=== PATIENT | female | born 1980 | race American Indian/Alaskan Native ===

== ENCOUNTER 2017-09-28 00:36 | Observation (INO) | payer OTHER ==
[2017-09-28 00:47] VITALS: BMI 19.0
[2017-09-28] MEDS ORDERED: Morphine 2 mg/ml ISec IVP STA ×3 (01:10→04:02)
[2017-09-28 01:38] LABS: BASO # 0.02 K/mm3 (0.0-2.0); BASO % 0.3 % (0.0-3.0); EOS # 0.1 (0.0-0.7); EOS % 1.8 % (1.5-5.0); GRAN % 45.6 % (50.0-68.0); HEMOGLOBIN 10.6 g/dL (12.0-16.0); LYMPH # 2.3 (1.2-3.4); LYMPH % 29.3 % (22.0-35.0); MEAN CELL VOLUME 79.7 fl (80.0-105.0); MEAN CORPUSCULAR HEMOGLOBIN 28.3 pg (25.0-35.0); MEAN CORPUSCULAR HGB CONC 35.6 g/dl (31.0-37.0); MEAN PLATELET VOLUME 10.7 fl (7.0-11.0); MONO # 1.8 (0.1-0.6); PLATELET COUNT 232 10^3/uL (120.0-450.0); RBC 3.74 10^6/uL (3.5-6.1); RED CELL DISTRIBUTION WIDTH 19.1 % (11.5-14.5); WHITE BLOOD COUNT 7.7 10^3/ul (4.5-11.0)
[2017-09-28 01:41] LABS: ALB/GLOB RATIO 0.9 (1.1-1.8); ALT/SGPT 112 U/L (7-56); AST/SGOT 128 U/L (14-36); BLOOD UREA NITROGEN 20 mg/dL (7-21); CALCIUM 9.7 mg/dL (8.4-10.5); GFR AFRICAN-AMERICAN > 60; GFR NON-AFRICAN AMERICAN > 60; LIPASE 382 U/L (23-300)
--- NOTE | 2017-09-28 01:45 | ED PDOC ---
Arrival/HPI - General Historian: Patient - History of Present Illness Time/Duration: Other (3 hours) Symptom Onset: Sudden Activities at Onset: Light Context: Home <Kit Catsle - Last Filed: 09/28/17 04:37> - General Historian: Patient <CullenYao - Last Filed: 09/28/17 04:53> - General Chief Complaint: Chest Pain Time Seen by Provider: 09/28/17 00:40 - History of Present Illness Narrative History of Present Illness (Text): 09/28/17 01:47 PGY-[address] Castle Paula is a 37 year old female with PMHx Colon CA with liver mets s/p colon resection and PE one month ago who presents with chest pain. Patient states that one month ago she was hospitalized for PE after experiencing sudden sharp chest pain and was started on Lovenox following discharge. Today she is presenting with sharp, throbbing pain across the whole chest that is worst in the center of the chest over the sternum. Pt states she laid down to go to sleep and was abruptly woken by this sudden pain. The chest pain does not radiate to the back, shoulders, or jaw, and is not pleuritic. She states this pain feels similar to how she felt when she had a PE. Pt also states she is having mild shortness of breath. She also complains of associated epigastric pain with some nausea, no vomiting, diarrhea, or bloody stools. Pt denies headache, leg swelling, calf pain, dizziness, paresthesias, vision changes. 09/28/17 04:51 (Yao Berman) Past Medical History - Provider Review Nursing Documentation Reviewed: Yes - Infectious Disease Hx of Infectious Diseases: None - Cardiac Hx Cardiac Disorders: No - Pulmonary Hx Respiratory Disorders: No Hx Pulmonary Embolism: Yes - Neurological Hx Neurological Disorder: No - HEENT Hx HEENT Disorder: No - Renal Hx Renal Disorder: No - Endocrine/Metabolic Hx Endocrine Disorders: No - Hematological/Oncological Hx Blood Disorders: No - Integumentary Hx Dermatological Disorder: No - Musculoskeletal/Rheumatological Hx Musculoskeletal Disorders: No - Gastrointestinal Hx Gastrointestinal Disorders: Yes Other/Comment: Colon Cancer, patient reports spread to her liver. - Genitourinary/Gynecological Hx Genitourinary Disorders: No - Psychiatric Hx Psychophysiologic Disorder: No Hx Substance Use: No <Yao Berman - Last Filed: 09/28/17 04:53> Family/Social History - Physician Review Nursing Documentation Reviewed: Yes Family/Social History: Unknown Family HX Smoking Status: Never Smoked Hx Alcohol Use: No Hx Substance Use: No <Yao Berman - Last Filed: 09/28/17 04:53> Allergies/Home Meds <Kit Castle - Last Filed: 09/28/17 04:37> <Yao Berman - Last Filed: 09/28/17 04:53> Allergies/Adverse Reactions: Allergies No Known Allergies Allergy (Verified 09/28/17 00:47) Home Medications: Home Meds Medication Instructions Recorded Confirmed Unobtainable 09/28/17 09/28/17 Review of Systems - Physician Review All systems were reviewed & negative as marked: Yes <Kit Castle - Last Filed: 09/28/17 04:37> - Review of Systems Constitutional: Other (no chills). absent: Fevers Eyes: Normal. absent: Vision Changes, Photophobia, Eye Pain ENT: Normal. absent: Hearing Changes, Sore Throat, Rhinorrhea Respiratory: SOB. absent: Cough, Sputum Cardiovascular: Chest Pain. absent: Palpitations, Edema, Calf Pain Gastrointestinal: Abdominal Pain, Nausea. absent: Constipation, Diarrhea, Vomiting Genitourinary Female: Normal. absent: Dysuria, Frequency Musculoskeletal: Normal. absent: Back Pain, Neck Pain Skin: Normal. absent: Rash, Pruritis Neurological: Normal. absent: Headache, Dizziness, Focal Weakness <Yao Berman - Last Filed: 09/28/17 04:53> Physical Exam Vital Signs Reviewed: Yes Temperature: Afebrile Blood Pressure: Normal Pulse: Tachycardic Respiratory Rate: Normal Appearance: Positive for: Uncomfortable Pain Distress: Moderate Mental Status: Positive for: Alert and Oriented X 3. No: Confused, Agitated - Systems Exam Head: Present: Atraumatic, Normocephalic Pupils: Present: PERRL Extroacular Muscles: Present: EOMI Conjunctiva: Present: Normal Mouth: Present: Moist Mucous Membranes, Normal Lips, Normal Tounge Pharnyx: Present: Normal. No: ERYTHEMA, EXUDATE, Uvular Deviation Nose (External): Present: Atraumatic Respiratory/Chest: Present: Clear to Auscultation. No: Respiratory Distress, Accessory Muscle Use, Wheezes, Decreased Breath Sounds Cardiovascular: Present: Regular Rate and Rhythm, Normal S1, S2. No: Murmurs Abdomen: Present: Tenderness (+tenderness to palpation in epigastric region, particularly on R side just below diaphragm), Normal Bowel Sounds. No: Distention, Peritoneal Signs, Rebound, Guarding Upper Extremity: Present: Normal Inspection, NORMAL PULSES. No: Cyanosis, Edema , Tenderness, Swelling Lower Extremity: Present: Normal Inspection, NORMAL PULSES. No: Edema, CALF TENDERNESS, Swelling, Erythema, Deformity Neurological: Present: GCS=15, CN II-XII Intact, Speech Normal, Motor Func Grossly Intact, Normal Sensory Function Skin: Present: Warm, Dry, Normal Color. No: Rashes Psychiatric: Present: Alert, Oriented x 3, Normal Insight, Normal Concentration <Yao Berman - Last Filed: 09/28/17 04:53> Vital Signs Temp Pulse Resp BP Pulse Ox 09/28/17 02:38 96 H 18 110/72 100 09/28/17 00:47 98.1 F 105 H 18 125/80 100 Medical Decision Making <Kit Castle - Last Filed: 09/28/17 04:37> - EKG Interpretation Interpreted by ED Physician: Yes Type: 12 lead EKG <Yao Berman - Last Filed: 09/28/17 04:53> ED Course and Treatment: In agreement with resident note which contains more details about the patient. Patient was seen and evaluated with resident. Came up with plan and treatment together. 37 year old female presents complaining chest pain and shortness of breath that began 3 hours prior to arrival. Patient also reports epigastric pain associated with nausea. Plan: -- CT Abdomen & Pelvis IV Contrast -- CT Angio Chest PE Protocol -- Labs -- Morphine, Zofran Inj -- POC Urine Preg test (Kit Castle) 1) Chest pain, rule out PE: * EKG, Cardiac enzymes * Labs: CBC with dif, CMP * CT angiogram chest * Morphine 2 mg IV twice for pain, Zofran 4mg 2) Epigastric pain * Lipase * CT abd/pelvis w/ IV contrast Results: EKG- Sinus tach, no ST or T changes CT angio chest: No evidence of PE CT abd/pelvis: Evidence of metastatic disease on liver (Yao Berman) - Lab Interpretations Lab Results: 09/28/17 01:15 09/28/17 01:15 Lab Results 09/28/17 01:15: PT 12.4, INR 1.09, APTT 51.9 H 09/28/17 01:15: Sodium 139, Potassium 3.9, Chloride 103, Carbon Dioxide 25, Anion Gap 15, BUN 20, Creatinine 0.6 L, Est GFR ( Amer) > 60, Est GFR ( Non-Af Amer) > 60, Random Glucose 95, Calcium 9.7, Total Bilirubin 0.6, AST 128 H, ALT 112 H, Alkaline Phosphatase 353 H, Lactate Dehydrogenase 698, Total Creatine Kinase 40, Troponin I < 0.01, Total Protein 8.4 H, Albumin 4.0, Globulin 4.4, Albumin/Globulin Ratio 0.9 L, Lipase 382 H 09/28/17 01:15: WBC 7.7, RBC 3.74, Hgb 10.6 L, Hct 29.8 L, MCV 79.7 L, MCH 28.3 , MCHC 35.6, RDW 19.1 H, Plt Count 232, MPV 10.7, Gran % 45.6 L, Lymph % (Auto) 29.3, Davison % (Auto) 23.0 H, Eos % (Auto) 1.8, Baso % (Auto) 0.3, Gran # 3.50, Lymph # (Auto) 2.3, Davison # (Auto) 1.8 H, Eos # (Auto) 0.1, Baso # (Auto) 0.02, Neutrophils % (Manual) Pending, Lymphocytes % (Manual) Pending, Monocytes % ( Manual) Pending - RAD Interpretation Radiology Orders: 09/28/17 01:09 ANGIO CHEST PE PROTOCOL [CT] Stat 09/28/17 01:14 ABDOMEN & PELVIS [ABD & PELVIS IV CONTRAST ONLY] [CT] Stat - EKG Interpretation EKG Interpretation (Text): 09/28/17 01:[address] or T changes. (Yao Berman) - Medication Orders Current Medication Orders: Discontinued Medications Morphine Sulfate (Morphine) 2 mg IVP STAT STA Stop: 09/28/17 01:11 Last Admin: 09/28/17 01:24 Dose: 2 mg MAR Pain Assessment Document 09/28/17 01:24 AD (Rec: 09/28/17 01:24 AD [id number]) Pain Reassessment Is this a pain reassessment? No Presence of Pain Presence of Pain Yes Description Intensity of Pain at present 8 IVP Administration Document 09/28/17 01:24 AD (Rec: 09/28/17 01:24 AD [id number]) Charges for Administration # of IVP Administrations 1 Morphine Sulfate (Morphine) 2 mg IVP STAT STA Stop: 09/28/17 01:47 Last Admin: 09/28/17 01:53 Dose: 2 mg MAR Pain Assessment Document 09/28/17 01:53 AD (Rec: 09/28/17 01:53 AD [id number]) Pain Reassessment Is this a pain reassessment? No Presence of Pain Presence of Pain Yes Description Intensity of Pain at present 8 Pain Behavior Facial Grimacing IVP Administration Document 09/28/17 01:53 AD (Rec: 09/28/17 01:53 AD [id number]) Charges for Administration # of IVP Administrations 1 Morphine Sulfate (Morphine) 2 mg IVP STAT STA Stop: 09/28/17 04:03 Last Admin: 09/28/17 04:08 Dose: 2 mg MAR Pain Assessment Document 09/28/17 04:08 AD (Rec: 09/28/17 04:09 AD [id number]) Pain Reassessment Is this a pain reassessment? No Presence of Pain Presence of Pain Yes Pain Scale Used Pain Scale Used Numeric Description Intensity of Pain at present 5 Pain Behavior Facial Grimacing IVP Administration Document 09/28/17 04:08 AD (Rec: 09/28/17 04:09 AD [id number]) Charges for Administration # of IVP Administrations 1 Ondansetron HCl (Zofran Inj) 4 mg IVP STAT STA Stop: 09/28/17 01:12 Last Admin: 09/28/17 01:24 Dose: 4 mg IVP Administration Document 09/28/17 01:24 AD (Rec: 09/28/17 01:24 AD [id number]) Charges for Administration # of IVP Administrations 1 - PA / PLASTIC MIXER / Resident Statement / has reviewed & agrees with the documentation as recorded. / has examined the patient and agrees with the treatment plan. - Scribe Statement The provider has reviewed the documentation as recorded by the Scribe <Kit Castle - Last Filed: 09/28/17 04:37> <Yao Berman - Last Filed: 09/28/17 04:53> - Scribe Statement Heather Love Provider Scribe Attestation: All medical record entries made by the Scribe were at my direction and personally dictated by me. I have reviewed the chart and agree that the record accurately reflects my personal performance of the history, physical exam, medical decision making, and the department course for this patient. I have also personally directed, reviewed, and agree with the discharge instructions and disposition. (Kit Castle) Disposition/Present on Arrival <Kit Castle - Last Filed: 09/28/17 04:37> - Present on Arrival History of DVT/PE: No History of Uncontrolled Diabetes: No Urinary Catheter: No History of Decub. Ulcer: No History Surgical Site Infection Following: None <Yao Berman - Last Filed: 09/28/17 04:53> - Disposition Disposition: HOSPITALIZED
[2017-09-28 01:52] LABS: TROPONIN I < 0.01 ng/mL
[2017-09-28] MEDS ORDERED: Morphine 2 mg/ml ISec IM STA (03:56)
[2017-09-28 03:57] LABS: INR 1.09; PARTIAL THROMBOPLASTIN TIME 51.9 Seconds (25.1-36.5); PROTHROMBIN TIME 12.4 SECONDS (9.4-12.5)
[2017-09-28 05:14] LABS: BAND 2 % (0-2); EOSINOPHIL 1 % (0.0-3.0); LYMPHOCYTE 33 % (22.0-35.0); MONOCYTE 25 % (1.0-6.0); NEUTROPHIL 40 % (50.0-70.0)
[2017-09-28 05:15] LABS: ANISOCYTOSIS 1+; BASOPHIL 1 % (0.0-1.0); PLATELET ESTIMATE NORMAL (NORMAL)
[2017-09-28] MEDS ORDERED: HYDROmorphone 0.5 mg/0.5 ml ISec IVP STA (05:36)
--- NOTE | 2017-09-28 06:26 | CP.PCM.HP ---
<Adis Duran - Last Filed: 09/28/17 07:45> History of Present Illness - History of Present Illness History of Present Illness: CC: Chest pain/abdominal pain HPI: Patient is a 37 year old female with a past medical history of colon CA with liver mets s/p colon resection, asthma, and PE who presented to the emergency department for evaluation and treatment of chest pain/abdominal pain. States pain began several months ago after undergoing partial colectomy. Chest pain originates in the retrosternal region and is nonradiating. The pain is characterized as being dull throbbing/hot in nature and is rated a 9/10. States morphine does not help with pain. Admits to reduction of pain with use of ICE on affected region and diluadid. Chest pain is associated with shortness of breath and nausea. Abdominal pain is localized to the epigastric region and is characterized as being dull in nature. Admits to constipation with unknown last bowel movement. Denies fever, chills, vomiting, diarrhea, and urinary symptoms. 12 point ROS negative except as indicated in HPI Past medical history: colon CA with liver mets s/p colon resection, asthma, and PE Past surgical history: colectomy (March) Allergies: NKDA Social History: denies ETOH use, denies tobacco use, denies illicit drug use PMD: [facility] Pharmacy: [facility] Present on Admission - Present on Admission Any Indicators Present on Admission: No Review of Systems - Constitutional Constitutional: Fatigue, Lethargy. absent: Chills, Excessive Sweating, Fever, Night Sweats - EENT Eyes: absent: Change in Vision, Pain Ears: Dizziness Nose/Mouth/Throat: absent: Nose Pain, Bleeding Gums, Hoarsness - Cardiovascular Cardiovascular: Chest Pain, Lightheadedness. absent: Claudication, Leg Edema - Respiratory Respiratory: absent: Cough, Hemoptysis, Chest Congestion, Change in Mucous Color , Pain with Coughing - Gastrointestinal Gastrointestinal: Abdominal Pain, Constipation, Nausea. absent: Diarrhea, Vomiting - Genitourinary Genitourinary: absent: Pyuria, Nocturia, Freq UTI - Menstruation Menstruation: Normal Menses - Musculoskeletal Musculoskeletal: absent: Joint Swelling, Myalgias, Neck Pain - Integumentary Integumentary: absent: Hirsutism, Lesions - Neurological Neurological: Dizziness, Headaches. absent: Abnormal Hearing - Psychiatric Psychiatric: absent: Difficulty Concentrating, Mood Swings - Endocrine Endocrine: absent: Excessive Sweating, Polydipsia, Polyphagia - Hematologic/Lymphatic Hematologic: absent: Easy Bleeding, Easy Bruising Past Patient History - Infectious Disease Hx of Infectious Diseases: None - Past Social History Smoking Status: Never Smoked - CARDIAC Hx Cardiac Disorders: No - PULMONARY Hx Respiratory Disorders: No Hx Pulmonary Embolism: Yes - NEUROLOGICAL Hx Neurological Disorder: No - HEENT Hx HEENT Problems: No - RENAL Hx Chronic Kidney Disease: No - ENDOCRINE/METABOLIC Hx Endocrine Disorders: No - HEMATOLOGICAL/ONCOLOGICAL Hx Blood Disorders: No - INTEGUMENTARY Hx Dermatological Problems: No - MUSCULOSKELETAL/RHEUMATOLOGICAL Hx Musculoskeletal Disorders: No - GASTROINTESTINAL Hx Gastrointestinal Disorders: Yes Other/Comment: Colon Cancer, patient reports spread to her liver. - GENITOURINARY/GYNECOLOGICAL Hx Genitourinary Disorders: No - PSYCHIATRIC Hx Psychophysiologic Disorder: No Hx Substance Use: No - SURGICAL HISTORY Hx Surgeries: Yes (colon resection) Meds Allergies/Adverse Reactions: Allergies Allergy/AdvReac Type Severity Reaction Status Date / Time No Known Allergies Allergy Verified 09/28/17 00:47 Physical Exam - Constitutional Appears: Well, No Acute Distress - Head Exam Head Exam: ATRAUMATIC, NORMAL INSPECTION, NORMOCEPHALIC - Eye Exam Eye Exam: EOMI, Normal appearance, PERRL Pupil Exam: NORMAL ACCOMODATION, PERRL - Neck Exam Neck exam: Positive for: Normal Inspection - Respiratory Exam Respiratory Exam: Clear to Auscultation Bilateral, NORMAL BREATHING PATTERN - Cardiovascular Exam Cardiovascular Exam: REGULAR RHYTHM, +S1, +S2 - GI/Abdominal Exam GI & Abdominal Exam: Guarding, Normal Bowel Sounds, Soft. absent: Bruit, Organomegaly - Rectal Exam Rectal Exam: Deferred - Extremities Exam Extremities exam: Positive for: normal inspection - Back Exam Back exam: NORMAL INSPECTION. absent: CVA tenderness (L), CVA tenderness (R) - Neurological Exam Neurological exam: Alert, CN II-XII Intact, Normal Gait, Oriented x3, Reflexes Normal - Psychiatric Exam Psychiatric exam: Anxious, Depressed - Skin Skin Exam: Dry, Intact, Normal Color, Warm Results - Vital Signs Recent Vital Signs: Last Vital Signs Temp 98.7 F 09/28/17 04:44 Pulse 91 H 08/08/18 04:44 Resp 18 09/28/17 04:44 BP 109/71 09/28/17 04:44 Pulse Ox 100 09/28/17 04:25 - Labs Result Diagrams: 09/28/17 06:30 09/28/17 01:15 Assessment & Plan - Assessment and Plan (Free Text) Assessment: Patient is a 37 year old female with a past medical history of colon CA with liver mets s/p colon resection, htn, anemia and PE one month ago who was admitted for evaluation and treatment of chest pain/abdominal pain. Plan: 1)Chest pain/abdominan pain Non specific Persistent since partial colectomy surgery in March/2017 chest pain reproducible, tender to palpate paranormal area bilaterally Troponin negative x1 will trend EKG: nsr, sinus tachy CT angio chest: negative for PE, Nodular opacity at the right lung base that may reflect atelectasis? mets? Zofran nausea sputum culture blood culture CBC, CMP, Mg,Phos Morphine 2mg given. no response Dilaudid 0.5 mg IVP x1 given 2)Metastatic colon cancer Known mets to the liver questionable left lung mets, nodular opacity in chest CT angio (09/28/17) oncology consulted Dr Rivera 3)History of pulmonary embolism Chest CT angio negative today takes Lovenox BID at home. does not know the dose started giving Lovenox 45 BID after consulting with pharmacist. dose can be adjusted after getting more info about home meds 4)Anemia Likely due to colon cancer H/H 10.6/29.8 patient refused rectal exam Iron studies, Fe,TIBC, ferritin ordered 5)HTN recent diagnosis BP monitor will reconcile meds with pharmacy vital signs q6h 6)Asthma no active syptoms Duoneb prn O2 prn will reconcile meds with pharmacy 7) Prophylaxis DVT ppx SCD GI ppx protonix Case was reviewed and discussed with Dr Hedrick - Date & Time Date: 09/28/17 Time: 05:10 <Myra Garsia - Last Filed: 09/28/17 09:51> Results - Vital Signs Recent Vital Signs: Last Vital Signs Temp 97.2 F L 09/28/17 08:35 Pulse 80 09/28/17 08:35 Resp 19 09/28/17 08:35 BP 94/63 L 09/28/17 08:35 Pulse Ox 100 09/28/17 08:35 - Labs Result Diagrams: 09/28/17 06:30 09/28/17 06:30 Labs: Laboratory Results - last 24 hr 09/28/17 09/28/17 09/28/17 06:30 06:30 06:30 WBC 6.2 RBC 3.88 Hgb 10.9 L Hct 30.9 L MCV 79.6 L MCH 28.1 MCHC 35.3 RDW 19.1 H Plt Count 216 MPV 10.3 Gran % 46.0 L Lymph % (Auto) 34.4 Beadle % (Auto) 17.0 H Eos % (Auto) 2.1 Baso % (Auto) 0.5 Gran # 2.83 Lymph # (Auto) 2.1 Beadle # (Auto) 1.1 H Eos # (Auto) 0.1 Baso # (Auto) 0.03 Sodium 137 Potassium 4.6 Chloride 103 Carbon Dioxide 24 Anion Gap 15 BUN 16 Creatinine 0.6 L Est GFR ( Amer) > 60 Est GFR (Non-Af Amer) > 60 Random Glucose 95 Calcium 9.6 Iron 67 TIBC 350 % Saturation 19 L Total Bilirubin 0.5 AST 97 H D ALT 101 H Alkaline Phosphatase 327 H Troponin I < 0.01 Total Protein 7.6 Albumin 3.7 Globulin 3.9 Albumin/Globulin Ratio 1.0 L Attending/Attestation - Attestation I have personally seen and examined this patient.: Yes I have fully participated in the care of the patient.: Yes I have reviewed all pertinent clinical information: Yes Notes (Text): 09/28/17 09:42 Patient was seen with the resident at the bedside. chest pain is reproducible on palpation of both parasternal regions Physical findings,diagnosis and treatment plans discussed. As for Asthma,she has no active symptoms. Agree with documentation and treatment plan. 09/28/17 09:47
[2017-09-28 07:14] LABS: BASO # 0.03 K/mm3 (0.0-2.0); BASO % 0.5 % (0.0-3.0); EOS # 0.1 (0.0-0.7); EOS % 2.1 % (1.5-5.0); GRAN # 2.83 (1.4-6.5); HEMOGLOBIN 10.9 g/dL (12.0-16.0); LYMPH # 2.1 (1.2-3.4); LYMPH % 34.4 % (22.0-35.0); MEAN CELL VOLUME 79.6 fl (80.0-105.0); MEAN CORPUSCULAR HEMOGLOBIN 28.1 pg (25.0-35.0); MEAN CORPUSCULAR HGB CONC 35.3 g/dl (31.0-37.0); MEAN PLATELET VOLUME 10.3 fl (7.0-11.0); MONO # 1.1 (0.1-0.6); RBC 3.88 10^6/uL (3.5-6.1); RED CELL DISTRIBUTION WIDTH 19.1 % (11.5-14.5); WHITE BLOOD COUNT 6.2 10^3/ul (4.5-11.0)
[2017-09-28 07:34] LABS: IRON 67 ug/dL (45-180)
[2017-09-28 07:43] LABS: % IRON SATURATION 19 % (20-55); TOTAL IRON BINDING CAPACITY 350 ug/dL (265-497)
[2017-09-28 08:00] LABS: ALBUMIN 3.7 g/dL (3.0-4.8); ALT/SGPT 101 U/L (7-56); AST/SGOT 97 U/L (14-36); BLOOD UREA NITROGEN 16 mg/dL (7-21); CALCIUM 9.6 mg/dL (8.4-10.5); GFR AFRICAN-AMERICAN > 60; GFR NON-AFRICAN AMERICAN > 60
[2017-09-28 08:06] LABS: TROPONIN I < 0.01 ng/mL
[2017-09-28] MEDS ORDERED: Morphine 2 mg/ml ISec IVP PRN (08:13)
[2017-09-28] MEDS: Enoxaparin 60 mg Syringe SC SCH ×2 (09:05→18:27)
--- NOTE | 2017-09-28 09:05 | CT ---
Date of service: 09/28/2017 PROCEDURE: CT Chest with contrast (Pulmonary Angiogram) HISTORY: Chest pain w/ recent PE COMPARISON: None available. TECHNIQUE: Axial computed tomography images were obtained of the chest in the pulmonary arterial phase of enhancement. Coronal and sagittal reformatted images were created and reviewed. Intravenous contrast dose: 150 cc Omnipaque 350. Mean Hounsfield unit values in the main pulmonary artery: 299.35 Radiation dose: Total exam DLP = 212.52 mGy-cm. This CT exam was performed using one or more of the following dose reduction techniques: Automated exposure control, adjustment of the mA and/or kV according to patient size, and/or use of iterative reconstruction technique. FINDINGS: PULMONARY ARTERIES: Unremarkable. No pulmonary embolism. AORTA: No acute findings. No thoracic aortic aneurysm. LUNGS: Focal atelectasis/infiltrate basilar segment right lower lobe. PLEURAL SPACES: Unremarkable. No effusion or pneumothorax. HEART: Unremarkable. No cardiomegaly. No significant pericardial effusion. LYMPH NODES: No lymphadenopathy. BONES, CHEST WALL: Unremarkable. No fracture or destructive lesion OTHER FINDINGS: Enlarged liver with innumerable hepatic masses the largest in the right hepatic lobe measures 4.7 x 7.3 cm. IMPRESSION: Unremarkable CT pulmonary angiogram. No pulmonary embolus. Indeterminate finding right lower lobe approximately 1 cm. Likely benign infiltrate/atelectasis. Enlarged liver incompletely visualized and hepatic masses most likely metastatic disease. Concordant results (preliminary interpretation) provided by [employer]. Procedure Completed: :28 Preliminary ([facility]) Report: Dictated and Authenticated: 03:31. Final Interpretation: 09:03. September 28, 2017.
--- NOTE | 2017-09-28 09:12 | CT ---
Date of service: 09/28/2017 PROCEDURE: CT Abdomen and Pelvis with contrast HISTORY: Abdominal pain COMPARISON: None. TECHNIQUE: Contrast dose: Radiation dose: Total exam DLP = mGy-cm. This CT exam was performed using one or more of the following dose reduction techniques: Automated exposure control, adjustment of the mA and/or kV according to patient size, and/or use of iterative reconstruction technique. FINDINGS: LOWER THORAX: 7 x 13 mm infiltrate/ mass basilar segment right lower. LIVER: Enlarged liver with multiple masses within the liver and studding the surface of the liver highly suspected suspicious for hepatic metastatic disease. GALLBLADDER AND BILE DUCTS: Unremarkable. PANCREAS: Unremarkable. No gross lesion or ductal dilatation. SPLEEN: Unremarkable. ADRENALS: Enlarged and necrotic appearing left adrenal gland measures 1.5 x 2.5 cm. KIDNEYS AND URETERS: Unremarkable. No hydronephrosis. No solid mass. VASCULATURE: Unremarkable. No aortic aneurysm. BOWEL: Postoperative changes related to resection of portions of the left sivakumar colon, descending colon. Constipation without fecal impaction or obstruction. APPENDIX: Normal appendix. PERITONEUM: Unremarkable. No free fluid. No free air. LYMPH NODES: Unremarkable. No enlarged lymph nodes. BLADDER: Unremarkable. REPRODUCTIVE: Unremarkable. BONES: No acute fracture. OTHER FINDINGS: Soft tissue mass to the left of the midline at the level of the umbilicus measuring 11 mm possibly tumor deposition. There may be an additional cystic lesion adjacent to this in anterior abdominal wall. IMPRESSION: Hepatomegaly, hepatic metastatic disease. Suspicious findings in left adrenal gland and anterior abdominal wall for tumor. Postoperative changes descending colon. Concordant results (preliminary interpretation) provided by [employer]. Procedure Completed: 02:33. Preliminary ([facility]) Report: Dictated and Authenticated: 03:28. Final Interpretation: 19:10.
[2017-09-28] MEDS ORDERED: Morphine 4 mg/ml ISec IVP STA (10:40)
--- NOTE | 2017-09-28 15:17 | CARD ---
APPROVED REPORT Date of service: 09/28/2017 EKG Measurement Heart [id number] <Conclusion> Sinus tachycardia Possible Left atrial enlargement Borderline ECG
[2017-09-28] MEDS: Morphine 4 mg/ml ISec IVP PRN ×2 (15:36→19:37)
[2017-09-29] MEDS: Morphine 4 mg/ml ISec IVP PRN ×2 (03:06→07:50)
[2017-09-29 06:47] LABS: BASO # 0.02 K/mm3 (0.0-2.0); BASO % 0.4 % (0.0-3.0); EOS # 0.1 (0.0-0.7); EOS % 1.9 % (1.5-5.0); GRAN # 2.75 (1.4-6.5); HEMOGLOBIN 11.1 g/dL (12.0-16.0); LYMPH # 1.4 (1.2-3.4); LYMPH % 27.7 % (22.0-35.0); MEAN CELL VOLUME 79.8 fl (80.0-105.0); MEAN CORPUSCULAR HEMOGLOBIN 28.3 pg (25.0-35.0); MEAN CORPUSCULAR HGB CONC 35.5 g/dl (31.0-37.0); MEAN PLATELET VOLUME 9.8 fl (7.0-11.0); MONO # 0.9 (0.1-0.6); RBC 3.92 10^6/uL (3.5-6.1); RED CELL DISTRIBUTION WIDTH 18.9 % (11.5-14.5); WHITE BLOOD COUNT 5.2 10^3/ul (4.5-11.0)
[2017-09-29 06:53] LABS: ALB/GLOB RATIO 0.9 (1.1-1.8); ALT/SGPT 107 U/L (7-56); AST/SGOT 97 U/L (14-36); BLOOD UREA NITROGEN 18 mg/dL (7-21); CALCIUM 9.6 mg/dL (8.4-10.5); GFR AFRICAN-AMERICAN > 60; GFR NON-AFRICAN AMERICAN > 60
--- NOTE | 2017-09-29 07:40 | CP.PCM.PN ---
<Cecil Root - Last Filed: 09/29/17 16:14> Subjective - Date & Time of Evaluation Date of Evaluation: 09/29/17 Time of Evaluation: 07:39 - Subjective Subjective: Cecil Root PGY1 Internal Medicine Progress Note for Dr. Cat 37F seen and evaluated at bedside this morning. Patient resting in bed. Complaints of midsternal chest pain that radiates inferiorly which has been constant since her surgery. The pain medications help for a few hours but she currently rates it at a 8/10 and with medications it is still a 6/10. She has not ambulated since admission. Denies any bowel movements since admission. Denies fever, chills, nausea, vomiting, shortness of breath, palpitations, headache, dizziness, or urinary symptoms. Objective - Vital Signs/Intake and Output Vital Signs (last 24 hours): Temp Pulse Resp BP Pulse Ox 97.7 F 92 H 19 94/59 L 95 09/28/17 17:32 09/29/17 06:00 09/28/17 17:32 09/28/17 17:32 09/28/17 17:32 - Medications Medications: Current Medications Enoxaparin Sodium (Lovenox) 45 mg SC BID [facility] PRN Reason: Protocol Last Admin: 09/28/17 18:27 Dose: 45 mg Morphine Sulfate (Morphine) 4 mg IVP Q4H PRN PRN Reason: Pain, severe (8-10) Last Admin: 09/29/17 03:06 Dose: 4 mg Pantoprazole Sodium (Protonix Inj) 40 mg IVP DAILY [facility] Last Admin: 09/28/17 09:05 Dose: 40 mg - Labs Labs: 09/29/17 06:30 09/29/17 06:30 PT 12.4 SECONDS (9.4-12.5) 09/28/17 01:15 INR 1.09 09/28/17 01:15 APTT 51.9 Seconds (25.1-36.5) H 09/28/17 01:15 - Constitutional Appears: Non-toxic, No Acute Distress - Head Exam Head Exam: ATRAUMATIC, NORMAL INSPECTION, NORMOCEPHALIC - Eye Exam Eye Exam: EOMI, Normal appearance, PERRL - Respiratory Exam Respiratory Exam: Clear to Ausculation Bilateral, NORMAL BREATHING PATTERN - Cardiovascular Exam Cardiovascular Exam: REGULAR RHYTHM, +S1, +S2. absent: Murmur - GI/Abdominal Exam GI & Abdominal Exam: Soft, Tenderness (right sided ), Normal Bowel Sounds - Neurological Exam Neurological Exam: Alert, Awake, Oriented x3 - Psychiatric Exam Psychiatric exam: Normal Affect, Normal Mood - Skin Skin Exam: Dry, Intact, Normal Color, Warm Assessment and Plan - Assessment and Plan (Free Text) Assessment: 37 year old female with a past medical history of colon CA with liver mets s/p colon resection, htn, anemia and PE one month ago who was admitted for evaluation and treatment of chest pain/abdominal pain. Plan: 1. Chest pain - Persistent since partial colectomy surgery in March/2017 - Troponins negative - EKG: nsr, sinus tachy - CT angio chest: negative for PE, Nodular opacity at the right lung base - Zofran and Prochlorperazine for nausea - Pending sputum culture, blood culture - Pain control: Dilaudid 0.5 mg IVP Q3 - Discontinued telemetry 2. Metastatic colon cancer - Known mets to the liver - Megace 400mg daily - Diet supplements ordered - Oncology consulted Dr Rivera: Chemotherapy in [place] with primary oncologist, continue therapeutic Lovenox at 50mg BID 3. History of pulmonary embolism - Chest CT angio negative today - Lovenox 50mg BID 4. Anemia - Likely secondary to chemotherapy - H/H - Ferrous sulfate 324mg TID - Iron studies, Fe,TIBC, ferritin pending 5. HTN - Monitoring BP - 100/66 - Amlodipine 2.5mg 6. Asthma - Duoneb and O2 PRN 7. Anxiety - Xanax 0.25mg DVT ppx: Lovenox GI ppx: Protonix <Rangasamy,Ajantha - Last Filed: 09/30/17 15:05> Objective - Vital Signs/Intake and Output Vital Signs (last 24 hours): Temp Pulse Resp BP Pulse Ox 98 F 92 H 18 137/62 99 09/30/17 08:53 09/30/17 08:53 09/30/17 08:53 09/30/17 09:27 09/30/17 08:53 Intake and Output: 09/30/17 09/30/17 06:59 18:59 Intake Total 300 Balance 300 - Labs Labs: 09/30/17 06:40 09/30/17 06:40 PT 12.4 SECONDS (9.4-12.5) 09/28/17 01:15 INR 1.09 09/28/17 01:15 APTT 51.9 Seconds (25.1-36.5) H 09/28/17 01:15 Attending/Attestation - Attestation I have personally seen and examined this patient.: Yes I have fully participated in the care of the patient.: Yes I have reviewed all pertinent clinical information, including history, physical exam and plan: Yes Notes (Text): 09/30/17 14:58 attending note; Patient seen and examined with resident. Patient is alert and awake. Complaining of abdominal Pain. not in acute distress. Patient is a 37 year old female with a past medical history of colon CA with liver mets s/p colon resection,Hypertension, anemia and PE one month ago who was admitted for evaluation and treatment of chest pain/abdominal pain. started on IV morphine. Currently changed to IV Dilaudid. Patient with a history of advanced colon cancer with metastases to the liver, anterior abdominal wall, left adrenal gland and Small lung nodule. patient had chemotherapy 2 weeks ago in [place]. she and is afebrile and nontoxic. CBC showed mild anemia. Elevated LFTs secondary to extensive hepatic metastasis. history of PE; continue Lovenox. anxiety depression; continue Xanax prn. Continue pain management. Oncology evaluation appreciated. possible discharge home tomorrow. Follow-up with PMD in [place]. Patient is leaving on Tuesday. 09/30/17 15:04 09/30/17 15:05
[2017-09-29] MEDS: Enoxaparin 60 mg Syringe SC SCH ×2 (09:14→17:09)
--- NOTE | 2017-09-29 10:49 | CP.PCM.CON ---
History of Present Illness - History of Present Illness History of Present Illness: 37 year old female with a history of asthma, PE on therapeutic lovenox, stage IV colon cancer with liver metastasis dx 03/2017 on chemotherapy in [place], admitted with chest pain. The patient is visiting the area and notes to worsening chest pain which felt like her prior PE pain. A CT angio of the chest was negative for PE. She is currently feeling better. She is scheduled for her next chemotherapy this upcoming Tuesday. Past medical history: Asthma, PE, stage IV colon cancer Past surgical history: Portcath, colectomy Family history: Denies hematologic and oncologic problems Social history: Denies tobacco, alcohol, and illicit drug use. Allergies: NKA Review of systems: All remaining review of systems including HEENT, cardiovascular, respiratory, gastrointestinal, genitourinary, musculoskeletal, dermatologic, neurologic, and psychiatric are negative unless mentioned in the HPI. Past Patient History - Infectious Disease Hx of Infectious Diseases: None - Past Social History Smoking Status: Never Smoked - CARDIAC Hx Cardiac Disorders: No - PULMONARY Hx Respiratory Disorders: No Hx Pulmonary Embolism: Yes - NEUROLOGICAL Hx Neurological Disorder: No - HEENT Hx HEENT Problems: No - RENAL Hx Chronic Kidney Disease: No - ENDOCRINE/METABOLIC Hx Endocrine Disorders: No - HEMATOLOGICAL/ONCOLOGICAL Hx Blood Disorders: No - INTEGUMENTARY Hx Dermatological Problems: No - MUSCULOSKELETAL/RHEUMATOLOGICAL Hx Musculoskeletal Disorders: No - GASTROINTESTINAL Hx Gastrointestinal Disorders: Yes Other/Comment: Colon Cancer, patient reports spread to her liver. - GENITOURINARY/GYNECOLOGICAL Hx Genitourinary Disorders: No - PSYCHIATRIC Hx Psychophysiologic Disorder: No Hx Substance Use: No - SURGICAL HISTORY Hx Surgeries: Yes (colon resection) Meds Allergies/Adverse Reactions: Allergies Allergy/AdvReac Type Severity Reaction Status Date / Time No Known Allergies Allergy Verified 09/28/17 00:47 - Medications Medications: Current Medications Enoxaparin Sodium (Lovenox) 45 mg SC BID ITZ PRN Reason: Protocol Last Admin: 09/29/17 09:14 Dose: 45 mg Morphine Sulfate (Morphine) 4 mg IVP Q4H PRN PRN Reason: Pain, severe (8-10) Last Admin: 09/29/17 07:50 Dose: 4 mg Pantoprazole Sodium (Protonix Inj) 40 mg IVP DAILY [facility] Last Admin: 09/29/17 09:14 Dose: 40 mg Physical Exam - Head Exam Head Exam: ATRAUMATIC - Eye Exam Eye Exam: Normal appearance - ENT Exam ENT Exam: Mucous Membranes Dry - Respiratory Exam Respiratory Exam: NORMAL BREATHING PATTERN - Cardiovascular Exam Cardiovascular Exam: +S1, +S2 - GI/Abdominal Exam GI & Abdominal Exam: Normal Bowel Sounds - Extremities Exam Extremities exam: Positive for: normal inspection - Neurological Exam Neurological exam: Oriented x3 - Psychiatric Exam Psychiatric exam: Normal Affect, Normal Mood - Skin Skin Exam: Warm Results - Vital Signs Recent Vital Signs: Last Vital Signs Temp 97.7 F 09/29/17 06:00 Pulse 79 09/29/17 10:00 Resp 18 09/29/17 06:00 BP 100/66 09/29/17 06:00 Pulse Ox 98 09/29/17 06:00 - Labs Result Diagrams: 09/29/17 06:30 09/29/17 06:30 Labs: Laboratory Results - last 24 hr 09/28/17 09/28/17 09/28/17 06:30 07:32 11:24 WBC RBC Hgb Hct MCV MCH MCHC RDW Plt Count MPV Gran % Lymph % (Auto) Swain % (Auto) Eos % (Auto) Baso % (Auto) Gran # Lymph # (Auto) Swain # (Auto) Eos # (Auto) Baso # (Auto) Sodium Potassium Chloride Carbon Dioxide Anion Gap BUN Creatinine Est GFR ( Amer) Est GFR (Non-Af Amer) POC Glucose (mg/dL) 95 74 Random Glucose Calcium Ferritin 204.0 Total Bilirubin AST ALT Alkaline Phosphatase Troponin I Total Protein Albumin Globulin Albumin/Globulin Ratio 09/28/17 09/29/17 09/29/17 14:00 06:30 06:30 WBC 5.2 RBC 3.92 Hgb 11.1 L Hct 31.3 L MCV 79.8 L MCH 28.3 MCHC 35.5 RDW 18.9 H Plt Count 226 MPV 9.8 Gran % 53.0 Lymph % (Auto) 27.7 Swain % (Auto) 17.0 H Eos % (Auto) 1.9 Baso % (Auto) 0.4 Gran # 2.75 Lymph # (Auto) 1.4 Swain # (Auto) 0.9 H Eos # (Auto) 0.1 Baso # (Auto) 0.02 Sodium 137 Potassium 4.5 Chloride 102 Carbon Dioxide 27 Anion Gap 13 BUN 18 Creatinine 0.7 Est GFR ( Amer) > 60 Est GFR (Non-Af Amer) > 60 POC Glucose (mg/dL) Random Glucose 95 Calcium 9.6 Ferritin Total Bilirubin 0.8 AST 97 H ALT 107 H Alkaline Phosphatase 348 H Troponin I < 0.01 Total Protein 8.2 Albumin 4.0 Globulin 4.2 Albumin/Globulin Ratio 0.9 L Assessment & Plan (1) Colon cancer Assessment and Plan: stage IV liver metastasis on treatment in [place] for chemotherapy Tuesday with primary oncologist Status: Acute (2) Anemia Assessment and Plan: mild likely chemotherapy related and chronic disease Status: Acute (3) Pulmonary embolism Assessment and Plan: cont. therapeutic lovenox Thank you for this interesting consult. Status: Acute
[2017-09-29] MEDS: HYDROmorphone 0.5 mg/0.5 ml ISec IVP SCH ×5 (11:48→23:22)
[2017-09-29] MEDS ORDERED: Bisacodyl 5mg EC Tab PO ONE (12:57)
[2017-09-29] MEDS: Megestrol Acetate 40 mg/ml Cup PO SCH (13:54)
[2017-09-30] MEDS: HYDROmorphone 0.5 mg/0.5 ml ISec IVP SCH ×6 (02:45→13:52)
[2017-09-30] MEDS ORDERED: Pantoprazole 40 mg EC Tab PO SCH (06:00)
[2017-09-30 07:04] LABS: BASO # 0.03 K/mm3 (0.0-2.0); BASO % 0.6 % (0.0-3.0); EOS # 0.1 (0.0-0.7); GRAN # 2.94 (1.4-6.5); GRAN % 54.1 % (50.0-68.0); HEMOGLOBIN 10.6 g/dL (12.0-16.0); LYMPH # 1.3 (1.2-3.4); LYMPH % 23.2 % (22.0-35.0); MEAN CORPUSCULAR HEMOGLOBIN 28.3 pg (25.0-35.0); MEAN CORPUSCULAR HGB CONC 35.3 g/dl (31.0-37.0); MEAN PLATELET VOLUME 10.6 fl (7.0-11.0); MONO # 1.1 (0.1-0.6); MONO % 20.1 % (1.0-6.0); RBC 3.75 10^6/uL (3.5-6.1); RED CELL DISTRIBUTION WIDTH 18.7 % (11.5-14.5); WHITE BLOOD COUNT 5.4 10^3/ul (4.5-11.0)
[2017-09-30 07:39] LABS: ALB/GLOB RATIO 0.9 (1.1-1.8); ALBUMIN 3.8 g/dL (3.0-4.8); ALT/SGPT 90 U/L (7-56); AST/SGOT 100 U/L (14-36); BLOOD UREA NITROGEN 19 mg/dL (7-21); CALCIUM 9.4 mg/dL (8.4-10.5); GFR AFRICAN-AMERICAN > 60; GFR NON-AFRICAN AMERICAN > 60
--- NOTE | 2017-09-30 07:42 | CP.PCM.PN ---
Subjective - Date & Time of Evaluation Date of Evaluation: 09/30/17 Time of Evaluation: 07:39 - Subjective Subjective: Cecil Root PGY1 Internal Medicine Progress Note for Dr. Cat 37F seen and evaluated at bedside this morning. No acute events overnight. Received dilaudid overnight which helped with the pain. This morning, patient continues to complain of chest pain but states it has significantly improved since admission. She is ambulating and tolerating her diet. Complains of nausea this morning. Denies fever, chills, nausea, vomiting, diarrhea, headache, dizziness, shortness of breath, palpitations, cough, or urinary symptoms. Objective - Vital Signs/Intake and Output Vital Signs (last 24 hours): Temp Pulse Resp BP Pulse Ox 97.9 F 94 H 20 93/61 L 100 09/29/17 23:57 09/29/17 23:57 09/29/17 23:57 09/29/17 23:57 09/29/17 23:57 Intake and Output: 09/30/17 09/30/17 06:59 18:59 Intake Total 300 Balance 300 - Medications Medications: Current Medications Alprazolam (Xanax) 0.25 mg PO DAILY [facility] PRN Reason: Protocol Stop: 10/06/17 13:01 Last Admin: 09/29/17 13:54 Dose: 0.25 mg Amlodipine Besylate (Norvasc) 2.5 mg PO DAILY [facility] Enoxaparin Sodium (Lovenox) 50 mg SC BID [facility] PRN Reason: Protocol Last Admin: 09/29/17 17:09 Dose: 50 mg Ferrous Sulfate (Feosol) 324 mg PO TID [facility] Last Admin: 09/29/17 17:09 Dose: 324 mg Gabapentin (Neurontin) 300 mg PO DAILY [facility] PRN Reason: Protocol Last Admin: 09/29/17 13:55 Dose: 300 mg Hydromorphone HCl (Dilaudid) 0.5 mg IVP Q3H [facility] Last Admin: 09/30/17 06:51 Dose: Not Given Megestrol Acetate (Megace) 400 mg PO DAILY [facility] Last Admin: 09/29/17 13:54 Dose: 400 mg Mirtazapine (Remeron) 15 mg PO HS [facility] Last Admin: 09/29/17 22:00 Dose: 15 mg Ondansetron HCl (Zofran Tab) 4 mg PO Q6H PRN PRN Reason: Nausea/Vomiting Pantoprazole Sodium (Protonix Ec Tab) 40 mg PO 0600 [facility] Last Admin: 09/30/17 05:37 Dose: 40 mg Prochlorperazine (Compazine Tab) 10 mg PO Q4H [facility] Last Admin: 09/30/17 05:00 Dose: Not Given - Labs Labs: 09/30/17 06:40 09/29/17 06:30 PT 12.4 SECONDS (9.4-12.5) 09/28/17 01:15 INR 1.09 09/28/17 01:15 APTT 51.9 Seconds (25.1-36.5) H 09/28/17 01:15 - Constitutional Appears: Well, Non-toxic, No Acute Distress - Head Exam Head Exam: ATRAUMATIC, NORMAL INSPECTION, NORMOCEPHALIC - Eye Exam Eye Exam: EOMI, PERRL - ENT Exam ENT Exam: Mucous Membranes Moist, Normal Exam - Respiratory Exam Respiratory Exam: Clear to Ausculation Bilateral, NORMAL BREATHING PATTERN - Cardiovascular Exam Cardiovascular Exam: REGULAR RHYTHM, +S1, +S2. absent: Murmur - GI/Abdominal Exam GI & Abdominal Exam: Soft, Tenderness, Normal Bowel Sounds - Neurological Exam Neurological Exam: Alert, Awake, Oriented x3 - Psychiatric Exam Psychiatric exam: Normal Affect, Normal Mood Assessment and Plan - Assessment and Plan (Free Text) Assessment: 37 year old female with a past medical history of colon CA with liver mets s/p colon resection, htn, anemia and PE one month ago who was admitted for evaluation and treatment of chest pain/abdominal pain. Plan: 1. Chest pain - Persistent since partial colectomy surgery in March/2017 - Troponins negative - CT angio chest: negative for PE, Nodular opacity at the right lung base - Zofran and Prochlorperazine for nausea - Blood cultures negative at 48 hours - Pain control: Dilaudid 0.5 mg IVP Q3 - Discontinued telemetry 2. Metastatic colon cancer - Known mets to the liver - Megace 400mg daily - Diet supplements ordered: Glucerna - Oncology consulted Dr Rivera: Chemotherapy in [place] with primary oncologist, continue therapeutic Lovenox at 50mg BID 3. History of pulmonary embolism - Chest CT angio negative today - Lovenox 50mg BID 4. Anemia - Likely secondary to chemotherapy - H/H 10/30 - Ferrous sulfate 324mg TID - Iron studies, Fe,TIBC, ferritin pending 5. HTN - Continue to Monitor BP - 93/61 - Amlodipine 2.5mg with holding parameters 6. Asthma - Duoneb and O2 PRN 7. Anxiety - Xanax 0.25mg DVT ppx: Lovenox GI ppx: Protonix Regular Diet Patient seen and case discussed with Dr. Stephania Root PGY1
[2017-09-30 08:54] VITALS: PULSE 92; RESP 18; TEMP 98; O2SAT 99
[2017-09-30] MEDS: Enoxaparin 60 mg Syringe SC SCH (09:27)
[2017-09-30] MEDS: Megestrol Acetate 40 mg/ml Cup PO SCH (09:27)
[2017-09-30 09:31] VITALS: BP 137/62
[2017-09-30] MEDS ORDERED: HYDROmorphone 0.5 mg/0.5 ml ISec IVP STA (11:53)
--- NOTE | 2017-09-30 11:56 | CP.PCM.DIS ---
<Cecil Root - Last Filed: 09/30/17 12:21> Provider - Provider Date of Admission: 09/28/17 03:56 Attending physician: Margie Cat MD Primary care physician: Rossy Hyde MD Consults: Heme/Onc - Dr. Rivera Time Spent in preparation of Discharge (in minutes): 100 Hospital Course - Lab Results Lab Results: Micro Results 09/28/17 06:30 Blood Blood Culture - Preliminary NO GROWTH AFTER 48 HOURS 09/28/17 06:00 Blood Blood Culture - Preliminary NO GROWTH AFTER 48 HOURS Most Recent Lab Values WBC 5.4 10^3/ul (4.5-11.0) 09/30/17 06:40 RBC 3.75 10^6/uL (3.5-6.1) 09/30/17 06:40 Hgb 10.6 g/dL (12.0-16.0) L 09/30/17 06:40 Hct 30.0 % (36.0-48.0) L 09/30/17 06:40 MCV 80.0 fl (80.0-105.0) 09/30/17 06:40 MCH 28.3 pg (25.0-35.0) 09/30/17 06:40 MCHC 35.3 g/dl (31.0-37.0) 09/30/17 06:40 RDW 18.7 % (11.5-14.5) H 09/30/17 06:40 Plt Count 252 10^3/uL (120.0-450.0) 09/30/17 06:40 MPV 10.6 fl (7.0-11.0) 09/30/17 06:40 Gran % 54.1 % (50.0-68.0) 09/30/17 06:40 Lymph % (Auto) 23.2 % (22.0-35.0) 09/30/17 06:40 [place] % (Auto) 20.1 % (1.0-6.0) H 09/30/17 06:40 Eos % (Auto) 2.0 % (1.5-5.0) 09/30/17 06:40 Baso % (Auto) 0.6 % (0.0-3.0) 09/30/17 06:40 Gran # 2.94 (1.4-6.5) 09/30/17 06:40 Lymph # (Auto) 1.3 (1.2-3.4) 09/30/17 06:40 [place] # (Auto) 1.1 (0.1-0.6) H 09/30/17 06:40 Eos # (Auto) 0.1 (0.0-0.7) 09/30/17 06:40 Baso # (Auto) 0.03 K/mm3 (0.0-2.0) 09/30/17 06:40 Neutrophils % (Manual) 40 % (50.0-70.0) L 09/28/17 01:15 Band Neutrophils % 2 % (0-2) 09/28/17 01:15 Lymphocytes % (Manual) 33 % (22.0-35.0) 09/28/17 01:15 Monocytes % (Manual) 25 % (1.0-6.0) H 09/28/17 01:15 Eosinophils % (Manual) 1 % (0.0-3.0) 09/28/17 01:15 Basophils % (Manual) 1 % (0.0-1.0) 09/28/17 01:15 Platelet Evaluation Normal (NORMAL) 09/28/17 01:15 Anisocytosis (manual) 1+ 09/28/17 01:15 PT 12.4 SECONDS (9.4-12.5) 09/28/17 01:15 INR 1.09 09/28/17 01:15 APTT 51.9 Seconds (25.1-36.5) H 09/28/17 01:15 Sodium 137 mmol/L (132-148) 09/30/17 06:40 Potassium 4.4 mmol/L (3.6-5.0) 09/30/17 06:40 Chloride 101 mmol/L (98-107) 09/30/17 06:40 Carbon Dioxide 29 mmol/L (21-33) 09/30/17 06:40 Anion Gap 12 (10-20) 09/30/17 06:40 BUN 19 mg/dL (7-21) 09/30/17 06:40 Creatinine 0.6 mg/dl (0.7-1.2) L 09/30/17 06:40 Est GFR ( Amer) > 60 09/30/17 06:40 Est GFR (Non-Af Amer) > 60 09/30/17 06:40 POC Glucose (mg/dL) 111 mg/dL (65-110) H 09/29/17 21:52 Random Glucose 95 mg/dL (70-110) 09/30/17 06:40 Calcium 9.4 mg/dL (8.4-10.5) 09/30/17 06:40 Iron 67 ug/dL (45-180) 09/28/17 06:30 TIBC 350 ug/dL (265-497) 09/28/17 06:30 % Saturation 19 % (20-55) L 09/28/17 06:30 Ferritin 204.0 ng/mL 09/28/17 06:30 Total Bilirubin 0.6 mg/dL (0.2-1.3) 09/30/17 06:40 AST 100 U/L (14-36) H 09/30/17 06:40 ALT 90 U/L (7-56) H 09/30/17 06:40 Alkaline Phosphatase 359 U/L (38-126) H 09/30/17 06:40 Lactate Dehydrogenase 698 U/L (333-699) 09/28/17 01:15 Total Creatine Kinase 40 U/L (35-230) 09/28/17 01:15 Troponin I < 0.01 ng/mL 09/28/17 14:00 Total Protein 7.9 g/dL (5.8-8.3) 09/30/17 06:40 Albumin 3.8 g/dL (3.0-4.8) 09/30/17 06:40 Globulin 4.1 gm/dL 09/30/17 06:40 Albumin/Globulin Ratio 0.9 (1.1-1.8) L 09/30/17 06:40 Lipase 382 U/L (23-300) H 09/28/17 01:15 - Hospital Course Hospital Course: 37 year old female, past medical history of Colon cancer with liver metastases status post colon resection, asthma, hypertension, anemia, and pulmonary embolism currently on Lovenox, presented to [facility] Emergency Department on 09/28/17 with worsening chest and abdominal pain which has been constant since her colonic resection. Patient is originally from [place], visiting [place]. In the emergency department, troponins were negative, EKG showed normal sinus rhythm, and CT angiography of the chest was negative for a pulmonary embolism but did show a nodular opacity at the right lung base with recommendations for follow up and repeat of imaging in 6-[address] Rivera, hematology/oncology, was consulted. Antiemetics and pain medication were ordered. Patient was admitted to telemetry for further work up. Her medications were reconciled and she was started on therapeutic Lovenox 50mg BID. Pain was controlled with Dilaudid 0.5mg IVP Q3H. Dr. Rivera, hematology/oncology, recommended continuing current medications and follow up with [place] oncologist to resume chemotherapy treatments as scheduled. Patient was noted to be anemic for which labs were monitored and studies ordered to determine etiology which is likely secondary to her chemotherapy regimen. Her blood pressure was monitored and parameters in place. DVT and GI prophylaxis was provided. Patient tolerated a regular diet throughout her hospital course. She is to be discharged and follow up with her oncologist and primary care doctor. Patient was instructed to continue her home medications. Above is a brief summary of her hospital course. For a detailed encounter please refer to medical records. - Date & Time of H&P Date of H&P: 09/28/17 Time of H&P: 06:25 Discharge Exam - Head Exam Head Exam: ATRAUMATIC, NORMAL INSPECTION, NORMOCEPHALIC - Eye Exam Eye Exam: EOMI, Normal appearance, PERRL - ENT Exam ENT Exam: Mucous Membranes Moist - Respiratory Exam Respiratory Exam: Clear to PA & Lateral, NORMAL BREATHING PATTERN, UNREMARKABLE. absent: Respiratory Distress - Cardiovascular Exam Cardiovascular Exam: REGULAR RHYTHM, +S1, +S2. absent: Systolic Murmur - GI/Abdominal Exam GI & Abdominal Exam: Normal Bowel Sounds, Soft, Tenderness - Neurological Exam Neurological exam: Alert, Oriented x3 - Psychiatric Exam Psychiatric exam: Normal Affect, Normal Mood - Skin Skin Exam: Dry, Intact, Normal Color, Warm Discharge Plan - Discharge Medications Prescriptions: HYDROmorphone [Dilaudid 2 mg Tab] 2 mg PO Q6 PRN #12 tab PRN Reason: Pain, Severe (8-10) - Follow Up Plan Condition: GOOD Disposition: HOME/ ROUTINE Instructions: Colon and Rectal Cancer (DC) Additional Instructions: Please follow up with your oncologist as scheduled. Please continue your chemotherapy sessions as scheduled. Upon discharge, take your home medications as prescribed. Please follow up with your primary care doctor as well. If symptoms reoccur please return to the ED. Referrals: Rossy Hyde MD [Primary Care Provider] - <Margie Cat - Last Filed: 09/30/17 15:08> Provider - Provider Date of Admission: 09/28/17 03:56 Attending physician: Margie Cat MD Primary care physician: Rossy Hyde MD Hospital Course - Lab Results Lab Results: Micro Results 09/28/17 06:30 Blood Blood Culture - Preliminary NO GROWTH AFTER 48 HOURS 09/28/17 06:00 Blood Blood Culture - Preliminary NO GROWTH AFTER 48 HOURS Most Recent Lab Values WBC 5.4 10^3/ul (4.5-11.0) 09/30/17 06:40 RBC 3.75 10^6/uL (3.5-6.1) 09/30/17 06:40 Hgb 10.6 g/dL (12.0-16.0) L 09/30/17 06:40 Hct 30.0 % (36.0-48.0) L 09/30/17 06:40 MCV 80.0 fl (80.0-105.0) 09/30/17 06:40 MCH 28.3 pg (25.0-35.0) 09/30/17 06:40 MCHC 35.3 g/dl (31.0-37.0) 09/30/17 06:40 RDW 18.7 % (11.5-14.5) H 09/30/17 06:40 Plt Count 252 10^3/uL (120.0-450.0) 09/30/17 06:40 MPV 10.6 fl (7.0-11.0) 09/30/17 06:40 Gran % 54.1 % (50.0-68.0) 09/30/17 06:40 Lymph % (Auto) 23.2 % (22.0-35.0) 09/30/17 06:40 [place] % (Auto) 20.1 % (1.0-6.0) H 09/30/17 06:40 Eos % (Auto) 2.0 % (1.5-5.0) 09/30/17 06:40 Baso % (Auto) 0.6 % (0.0-3.0) 09/30/17 06:40 Gran # 2.94 (1.4-6.5) 09/30/17 06:40 Lymph # (Auto) 1.3 (1.2-3.4) 09/30/17 06:40 [place] # (Auto) 1.1 (0.1-0.6) H 09/30/17 06:40 Eos # (Auto) 0.1 (0.0-0.7) 09/30/17 06:40 Baso # (Auto) 0.03 K/mm3 (0.0-2.0) 09/30/17 06:40 Neutrophils % (Manual) 40 % (50.0-70.0) L 09/28/17 01:15 Band Neutrophils % 2 % (0-2) 09/28/17 01:15 Lymphocytes % (Manual) 33 % (22.0-35.0) 09/28/17 01:15 Monocytes % (Manual) 25 % (1.0-6.0) H 09/28/17 01:15 Eosinophils % (Manual) 1 % (0.0-3.0) 09/28/17 01:15 Basophils % (Manual) 1 % (0.0-1.0) 09/28/17 01:15 Platelet Evaluation Normal (NORMAL) 09/28/17 01:15 Anisocytosis (manual) 1+ 09/28/17 01:15 PT 12.4 SECONDS (9.4-12.5) 09/28/17 01:15 INR 1.09 09/28/17 01:15 APTT 51.9 Seconds (25.1-36.5) H 09/28/17 01:15 Sodium 137 mmol/L (132-148) 09/30/17 06:40 Potassium 4.4 mmol/L (3.6-5.0) 09/30/17 06:40 Chloride 101 mmol/L (98-107) 09/30/17 06:40 Carbon Dioxide 29 mmol/L (21-33) 09/30/17 06:40 Anion Gap 12 (10-20) 09/30/17 06:40 BUN 19 mg/dL (7-21) 09/30/17 06:40 Creatinine 0.6 mg/dl (0.7-1.2) L 09/30/17 06:40 Est GFR ( Amer) > 60 09/30/17 06:40 Est GFR (Non-Af Amer) > 60 09/30/17 06:40 POC Glucose (mg/dL) 111 mg/dL (65-110) H 09/29/17 21:52 Random Glucose 95 mg/dL (70-110) 09/30/17 06:40 Calcium 9.4 mg/dL (8.4-10.5) 09/30/17 06:40 Iron 67 ug/dL (45-180) 09/28/17 06:30 TIBC 350 ug/dL (265-497) 09/28/17 06:30 % Saturation 19 % (20-55) L 09/28/17 06:30 Ferritin 204.0 ng/mL 09/28/17 06:30 Total Bilirubin 0.6 mg/dL (0.2-1.3) 09/30/17 06:40 AST 100 U/L (14-36) H 09/30/17 06:40 ALT 90 U/L (7-56) H 09/30/17 06:40 Alkaline Phosphatase 359 U/L (38-126) H 09/30/17 06:40 Lactate Dehydrogenase 698 U/L (333-699) 09/28/17 01:15 Total Creatine Kinase 40 U/L (35-230) 09/28/17 01:15 Troponin I < 0.01 ng/mL 09/28/17 14:00 Total Protein 7.9 g/dL (5.8-8.3) 09/30/17 06:40 Albumin 3.8 g/dL (3.0-4.8) 09/30/17 06:40 Globulin 4.1 gm/dL 09/30/17 06:40 Albumin/Globulin Ratio 0.9 (1.1-1.8) L 09/30/17 06:40 Lipase 382 U/L (23-300) H 09/28/17 01:15 Attending/Attestation - Attestation I have personally seen and examined this patient.: Yes I have fully participated in the care of the patient.: Yes I have reviewed all pertinent clinical information, including history, physical exam and plan: Yes Notes (Text): 09/30/17 15:06 attending note; Patient seen and examined with resident. Patient is alert and awake. Complaining of abdominal Pain. not in acute distress. Patient is a 37 year old female with a past medical history of colon CA with liver mets s/p colon resection,Hypertension, anemia and PE one month ago who was admitted for evaluation and treatment of chest pain/abdominal pain. started on IV morphine. Currently changed to IV Dilaudid. Patient with a history of advanced colon cancer with metastases to the liver, anterior abdominal wall, left adrenal gland and Small lung nodule. CT chest is negative for PE. patient had chemotherapy 2 weeks ago in [place]. she and is afebrile and nontoxic. CBC showed mild anemia. Elevated LFTs secondary to extensive hepatic metastasis. history of PE; continue Lovenox. anxiety depression; continue Xanax prn. Continue pain management. Oncology evaluation appreciated. possible discharge home tomorrow. Follow-up with PMD/ oncology in [place]. Patient is leaving on Tuesday. the diagnosis, follow-up plan discussed with patient and patient's father in detail.
--- NOTE | 2017-09-30 22:34 | CP.PCM.PN ---
Subjective - Date & Time of Evaluation Date of Evaluation: 09/30/17 Time of Evaluation: 10:00 - Subjective Subjective: Feeling better. Objective - Vital Signs/Intake and Output Vital Signs (last 24 hours): Temp Pulse Resp BP Pulse Ox 98 F 92 H 18 137/62 99 09/30/17 08:53 09/30/17 08:53 09/30/17 08:53 09/30/17 09:27 09/30/17 08:53 - Labs Labs: 09/30/17 06:40 09/30/17 06:40 PT 12.4 SECONDS (9.4-12.5) 09/28/17 01:15 INR 1.09 09/28/17 01:15 APTT 51.9 Seconds (25.1-36.5) H 09/28/17 01:15 - Head Exam Head Exam: ATRAUMATIC - Eye Exam Eye Exam: Normal appearance - ENT Exam ENT Exam: Mucous Membranes Dry - Respiratory Exam Respiratory Exam: NORMAL BREATHING PATTERN - Cardiovascular Exam Cardiovascular Exam: +S1, +S2 - GI/Abdominal Exam GI & Abdominal Exam: Normal Bowel Sounds Assessment and Plan (1) Colon cancer Assessment & Plan: stage IV liver metastasis on treatment in [place] for chemotherapy Tuesday with primary oncologist Status: Acute (2) Anemia Assessment & Plan: mild likely chemotherapy related and chronic disease Status: Acute (3) Pulmonary embolism Assessment & Plan: cont. therapeutic lovenox Status: Acute
== END 2017-09-30 14:15 | disposition home or self-care (01) ==
LOC: ED 00:36 → ERH 03:56 → MERGE 03:56 → 3RSO 04:26
PROVIDERS: ADMIT Internal Medicine; ATTEND Internal Medicine
DX: R07.2 Precordial pain (principal); R10.13 Epigastric pain; C78.7 Secondary malignant neoplasm of liver and intrahepatic bile duct; D63.0 Anemia in neoplastic disease; D64.81 Anemia due to antineoplastic chemotherapy; T45.1X5A Adverse effect of antineoplastic and immunosuppressive drugs, initial encounter; I10 Essential (primary) hypertension; J45.909 Unspecified asthma, uncomplicated; F41.9 Anxiety disorder, unspecified; F32.9 Major depressive disorder, single episode, unspecified; R91.1 Solitary pulmonary nodule; K59.00 Constipation, unspecified; Z85.038 Personal history of other malignant neoplasm of large intestine; Z86.711 Personal history of pulmonary embolism; Z90.49 Acquired absence of other specified parts of digestive tract
CPT/HCPCS: 36415; 71275; 74177; 80053; 82550; 82728; 82948; 83540; 83550; 83615; 83690; 84484; 85025; 85610; 85730; 87040; 93005; 96372; 96374; 96375; 96376; 99285; C9113; G0378; J1170; J1650; J2270; J2405; Q0164; Q9967